=== PATIENT | male | born 1990 | race Caucasian/White ===

== ENCOUNTER 2016-12-22 21:51 | Emergency (ER) | payer OTHER ==
[~2016-12-22] VITALS: Ht 190.5 cm; Wt 86.4 kg
[2016-12-22] MEDS ORDERED: AUGMENTIN875 MG PO (22:55)
[2016-12-22 23:24] VITALS: BP 139/73
== END 2016-12-22 23:10 ==
LOC: EME 21:51 → EDBD 21:51 → EME 23:10
PROC: 09Q0XZZ Repair Right External Ear, External Approach (ICD-10-PCS; principal; 2016-12-22)
DX: S01.351A Open bite of right ear, initial encounter (principal); Y04.1XXA Assault by human bite, initial encounter; Y92.149 Unspecified place in prison as the place of occurrence of the external cause; Y99.8 Other external cause status; Z87.891 Personal history of nicotine dependence
CPT/HCPCS: 99281; 99284